=== PATIENT | female | born 1995 ===

== ENCOUNTER → 2017-10-30 14:47 | Outpatient (CLI) | payer OTHER ==
[~2017-10-30 14:47] MED LIST: CIPRO500 MG PO; DICY20TA PO; FENOFIBRATE54 MG PO; FLAGYL500MG PO; LOSARTAN-HCTZ1 EAC2 PO; TOPROL XL50 M1 PO
== END | disposition home or self-care (01) ==
LOC: EKG 14:47
DX: K80.10 Calculus of gallbladder with chronic cholecystitis without obstruction (principal); I10 Essential (primary) hypertension

== ENCOUNTER 2017-11-08 05:25 | Day surgery (SDC) | payer OTHER ==
[2017-11-08] MEDS ORDERED: POLY119PG PO (09:13)
[2017-11-08] MEDS ORDERED: ULTRACET PO (09:13)
== END 2017-11-08 12:00 | disposition home or self-care (01) ==
LOC: CIR.AMB 05:25
DX: K80.10 Calculus of gallbladder with chronic cholecystitis without obstruction (principal)